=== PATIENT | male | born 1965 | race Two or more races ===

== ENCOUNTER 2020-11-25 15:04 | Outpatient (CLI) | payer OTHER | END 2020-11-29 15:14 | disposition home or self-care (01) | LOC: RX STUDY 15:04 | PROVIDERS: ATTEND Colon & Rectal Surgery | DX: K59.09 Other constipation (principal) ==

== ENCOUNTER 2021-03-21 07:09 | Day surgery (SDC) | payer OTHER | END 2021-03-21 12:55 | disposition home or self-care (01) | LOC: AMB-ENDOS 07:09 | PROVIDERS: ATTEND Colon & Rectal Surgery | DX: K62.89 Other specified diseases of anus and rectum (principal); K64.0 First degree hemorrhoids ==